=== PATIENT | male | born 1980 | race Asian ===

== ENCOUNTER 2021-08-30 14:46 | Emergency (ER) | payer OTHER ==
[~2021-08-30] VITALS: Ht 175.3 cm; Wt 72.6 kg
[2021-08-30 14:50] VITALS: BP 112/74
--- NOTE | 2021-08-30 15:23 | NUR ---
CALLED PT IN [place], NO ANSWER.
--- NOTE | 2021-08-30 15:38 | NUR ---
CALLED PT IN [place], NO ANSWER.
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
[2021-08-30] MEDS ORDERED: HYDR-3972 PO (17:23)
[2021-08-30] MEDS ORDERED: IBUP-1957 PO (17:23)
--- NOTE | 2021-08-30 17:50 | NUR ---
FIFI WRAP APPLIED.
--- NOTE | 2021-08-30 17:58 | NUR ---
Patient discharged to home in stable condition. Written and verbal after care instructions given. Patient verbalizes understanding of instruction.
== END 2021-08-30 17:59 | disposition home or self-care (01) ==
LOC: ER 14:51
DX: M23.91 Unspecified internal derangement of right knee (principal)
CPT/HCPCS: 73564-TC

== ENCOUNTER 2021-09-09 20:47 | Emergency (ER) | payer OTHER ==
[~2021-09-09] VITALS: Ht 172.7 cm; Wt 72.6 kg
[~2021-09-09 20:47] MED LIST: HYDR-3972 PO; IBUP-1957 PO
[2021-09-09 21:02] VITALS: BP 124/71
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
[2021-09-09] MEDS ORDERED: HYDR-4303 PO (21:33)
--- NOTE | 2021-09-09 21:40 | NUR ---
Patient discharged to home in stable condition. Written and verbal after care instructions given. Patient verbalizes understanding of instruction. PT ambulatory with a steady gait with crutches and splint
== END 2021-09-09 21:42 | disposition home or self-care (01) ==
LOC: ER 20:50
DX: M23.91 Unspecified internal derangement of right knee (principal); M25.561 Pain in right knee; Z60.2 Problems related to living alone; Z79.891 Long term (current) use of opiate analgesic; Z79.1 Long term (current) use of non-steroidal anti-inflammatories (NSAID); V86.96XA Unspecified occupant of dirt bike or motor/cross bike injured in nontraffic accident, initial encounter; Y93.89 Activity, other specified; Y92.89 Other specified places as the place of occurrence of the external cause; Y99.8 Other external cause status